=== PATIENT | female | born 2000 | race Caucasian/White ===

== ENCOUNTER 2021-11-05 10:05 | Emergency (ER) | payer OTHER ==
[~2021-11-05 10:05] MED LIST: IBUPROFEN600 MG PO; NAPROSYN500 MG PO
[2021-11-05] MEDS ORDERED: IBUPROFEN600 MG PO (13:41)
== END 2021-11-05 13:50 | disposition home or self-care (01) ==
LOC: ER1 10:05
DX: R05.9 Cough, unspecified (principal); J02.9 Acute pharyngitis, unspecified; R51.9 Headache, unspecified; Z20.822 Contact with and (suspected) exposure to COVID-19
CPT/HCPCS: 0240U; 99284